=== PATIENT | female | born 1995 | race Hispanic/Latino ===

== ENCOUNTER 2020-12-01 09:09 | Outpatient (CLI) | payer OTHER ==
[2020-12-01 19:15] LABS: SARS-CoV-2 PCR by NAA Not Detected (NotDetected)
== END 2020-12-01 09:10 | disposition home or self-care (01) ==
LOC: CSHLAB 09:09
PROVIDERS: ATTEND Obstetrics & Gynecology
DX: Z20.822 Contact with and (suspected) exposure to COVID-19 (principal)
CPT/HCPCS: 87635; U0003; U0005

== ENCOUNTER 2020-12-05 10:20 | Inpatient (IN) | payer OTHER ==
[~2020-12-05 10:20] MED LIST: Bicitra 30 ML UDCUP PO PRN; CEFAZOLIN 2 GM in Premix Bag 1 BAG IVPB SCH; Famotidine/PF 20 mg/2ml Vial SLOW IVP PRN; Lactated Ringer's 1,000 ML IV SCH; Ondansetron PF 4 MG/2 ML Vial IVP PRN; Promethazine HCl 25 MG/ML VIAL IM PRN; hydrALAZINE 20 MG/ML VIAL SLOW IVP PRN
[2020-12-05] MEDS ORDERED: Bicitra 30 ML UDCUP ONE (11:22)
[2020-12-05] MEDS ORDERED: PHENYLEPHRINE-NS 100 MCG/ML 10 ML SYRINGE ONE (11:50)
[2020-12-05] MEDS ORDERED: Morphine PF 10 MG/10 ML VIAL ONE (11:50)
[2020-12-05] MEDS ORDERED: Oxytocin 10 UNITS/ML VIAL ONE (11:50)
[2020-12-05] MEDS ORDERED: ePHEDrine Sulfate 50 MG/10 ML VIAL ONE (12:31)
[2020-12-05] MEDS ORDERED: Fentanyl 100 MCG/2 ML VIAL ONE (12:44)
[2020-12-05] MEDS ORDERED: Midazolam HCl 2 mg/2 ml Vial ONE (12:48)
[2020-12-05] MEDS ORDERED: Meperidine HCl/PF 25 MG/ML VIAL SLOW IVP PRN (13:48)
[2020-12-05] MEDS ORDERED: L&D-Morphine 4 MG/ML VIAL SLOW IVP PRN (13:48)
[2020-12-05] MEDS ORDERED: Naloxone HCl 0.4 mg/ml Vial IVP PRN ×2 (13:48)
[2020-12-05] MEDS ORDERED: Naloxone HCl 0.4 mg/ml Vial IV PRN (13:48)
[2020-12-05] MEDS ORDERED: Promethazine HCl 25 MG/ML VIAL IM PRN ×2 (13:48→15:50)
[2020-12-05] MEDS ORDERED: Ondansetron HCl/PF 4 MG/2 ML Vial IVP PRN (13:48)
[2020-12-05] MEDS ORDERED: Ondansetron PF 4 MG/2 ML Vial IVP PRN ×2 (13:48→15:50)
[2020-12-05] MEDS ORDERED: diphenhydrAMINE 50 MG/ML VIAL IVP PRN (13:48)
[2020-12-05] MEDS ORDERED: Promethazine HCl 25 MG SUPP PR PRN (13:48)
[2020-12-05] MEDS ORDERED: HYDROmorphone 2 MG/ML VIAL SLOW IVP PRN (13:48)
[2020-12-05] MEDS ORDERED: Ketorolac Tromethamine 30 MG/ML VIAL IVP PRN (13:48)
[2020-12-05] MEDS ORDERED: Communication Order-Pharmacy FS SCH (14:00)
[2020-12-05] MEDS ORDERED: Ketorolac Tromethamine 30 MG/ML VIAL IVP SCH (14:00)
[2020-12-05 14:01] VITALS: BMI 33.5
[2020-12-05 14:26] LABS: Hemoglobin 10.4 g/dL (12.0-15.5); Mean Corpuscular HGB CONC 31.1 g/dL (32.0-36.0); Mean Corpuscular Hemoglobin 24.6 pg (27.0-33.0); Mean Platelet Volume 10.3 fl (7.4-10.4); Platelet Count 272 10x3/uL (150-450); RBC Distribution Width 14.2 % (11.5-14.5); Red Blood Cell (RBC) Count 4.23 10x6/uL (3.90-5.03); White Blood Cell (WBC) Count 6.2 10x3/uL (3.5-10.5)
[2020-12-05 14:30] LABS: Anion Gap 19 mmol/L (10-20); BUN (Urea Nitrogen) 6 mg/dL (7.0-18.7); Calc. Creatinine Clearance 186 mL/min (70-130); Calcium 8.7 mg/dL (7.8-10.44); Carbon Dioxide 16 mmol/L (22-29); Chloride 105 mmol/L (98-107); Glucose 75 mg/dL (70-105); Potassium 4.6 mmol/L (3.5-5.1); Sodium 135 mmol/L (136-145)
[2020-12-05 14:55] LABS: Hep B Surf Ag Non-Reactive S/CO (NonReactive); Syphilis Antibody Nonreactive (Nonreactive); Syphilis Antibody Index 0.04 S/CO (<1.00 Non-Reactive)
[2020-12-05] MEDS ORDERED: Hydrocerin (Eucerin) Cream 120 gm Jar TOP PRN (15:02)
[2020-12-05 15:12] LABS: HBSAg Index 0.13 S/CO (0-0.99)
[2020-12-05] MEDS ORDERED: Varicella virus, LIVE 0.5 ML VIAL SC ONE (15:50)
[2020-12-05] MEDS ORDERED: Adacel (T-DAP) 0.5 ML SYRINGE IM ONE (15:50)
[2020-12-05] MEDS ORDERED: Lanolin Ointment 7 GM TUBE TOP PRN (15:50)
[2020-12-05] MEDS ORDERED: Measles/Mumps/Rubella 10 MCG/0.5 ML VIAL SC ONE (15:50)
[2020-12-05] MEDS ORDERED: Methylergonovine 0.2 MG/ML VIAL IM PRN (15:50)
[2020-12-05] MEDS ORDERED: hydrALAZINE 20 MG/ML VIAL SLOW IVP PRN (15:50)
[2020-12-05] MEDS ORDERED: Bisacodyl 10 MG SUPP PR PRN (15:50)
[2020-12-05] MEDS ORDERED: Misoprostol 200 MCG TAB PR PRN (15:50)
[2020-12-05] MEDS ORDERED: diphenhydrAMINE 25 MG CAP PO PRN (15:50)
[2020-12-05] MEDS ORDERED: NS w/ Oxytocin 30 units 500 ML IV SCH (17:30)
[2020-12-05] MEDS: Ibuprofen 800 MG TAB PO SCH (22:00)
[2020-12-06] MEDS: Ibuprofen 800 MG TAB PO SCH ×3 (07:40→21:39)
[2020-12-06] MEDS: HYDROcodone/Acetaminophen 5/325 mg Tablet PO PRN ×2 (07:41→16:29)
[2020-12-06 08:04] LABS: Mean Corpuscular HGB CONC 30.5 g/dL (32.0-36.0); Mean Corpuscular Hemoglobin 24.7 pg (27.0-33.0); Mean Corpuscular Volume 80.9 fl (81.6-98.3); Platelet Count 244 10x3/uL (150-450); RBC Distribution Width 14.3 % (11.5-14.5); Red Blood Cell (RBC) Count 4.46 10x6/uL (3.90-5.03); White Blood Cell (WBC) Count 8.7 10x3/uL (3.5-10.5)
[2020-12-06] MEDS: Prenatal Vitamin 1 TAB PO SCH (13:01)
[2020-12-06] MEDS: Simethicone Chewable 80 MG TAB PO PRN (14:13)
[2020-12-07] MEDS: HYDROcodone/Acetaminophen 5/325 mg Tablet PO PRN ×2 (00:21→15:49)
[2020-12-07] MEDS: Simethicone Chewable 80 MG TAB PO PRN (00:22)
[2020-12-07] MEDS: Ibuprofen 800 MG TAB PO SCH ×2 (05:18→13:46)
[2020-12-07] MEDS: Prenatal Vitamin 1 TAB PO SCH (08:46)
[2020-12-07 14:13] VITALS: BP 105/68; TEMP 98.4
== END 2020-12-07 18:35 | disposition home or self-care (01) | DRG 788 ==
LOC: CSHLD 10:20 → CSHPP 12-06 09:35
PROVIDERS: ADMIT Obstetrics & Gynecology; ATTEND Obstetrics & Gynecology
PROC: 10D00Z1 Extraction of Products of Conception, Low, Open Approach (ICD-10-PCS; principal; 2020-12-05)
DX: O34.211 Maternal care for low transverse scar from previous cesarean delivery (principal); Z3A.39 39 weeks gestation of pregnancy; Z37.0 Single live birth; Z20.822 Contact with and (suspected) exposure to COVID-19
CPT/HCPCS: 51702; 80048; 85027; 86780; 86850; 86900; 86901; 87340; 90715; J2250; J2274; J3010